=== PATIENT | female | born 1970 | race Caucasian/White ===

== ENCOUNTER 2021-03-19 18:44 | Inpatient (IN) | payer OTHER, MEDICAID ==
[~2021-03-19] VITALS: Ht 162.6 cm; Wt 190.1 kg
--- NOTE | ~2021-03-19 | CON ---
[facility] [address] [place] [address] CONSULTATION Name: JOSEY ANDERSON Room: [address] IN M.R.#: [id number] Admission: 03/19/21 Attend Phys: Karen Sanchez Discharge: Date of : 70 Report #: [id number] THIS REPORT FOR: cc: Yosvany Ocasio Sr, MD, Otis S Sr MD Khosla, Parveen K. MD ~ DOC #: [id number] Puneet Sanders MD DATE OF CONSULTATION: 03/21/2021 HISTORY OF PRESENT ILLNESS: This is a 50-year-old female patient who was evaluated by me for confusing history. She says she had confusion yesterday. She was trying to eat the batteries. She had some right facial weakness. Nurses say that they have never noticed any of these symptoms. She said she had a TIA before, but the history of TIA is pretty poorly defined. REVIEW OF SYSTEMS: Positive for diabetes, which appears to be uncontrolled. She said she had some slurring of the speech. Record indicates that she was confused, but question of narcotic use is there as I understand. She is a diabetic and that appeared to be uncontrolled. A 14-point review of system was otherwise noncontributory. PAST MEDICAL HISTORY: Positive for TIA, but history is poorly defined. FAMILY HISTORY: Unremarkable. SOCIAL HISTORY: She says she does not drink alcohol at all. PHYSICAL EXAMINATION: NEUROLOGIC: The patient's examination indicates she is alert, responsive, able to follow simple and complex commands, coherent. Her speech, concentration, fund of knowledge and memory is at her baseline. Cranial nerve examination II-XII is unremarkable. I do not see any facial weakness. Neuromuscular examination was symmetrical. Position sense is intact. Pulses are difficult to feel. She is morbidly obese. Her hearing and vision looks adequate. There is no thyroid mass or carotid bruit. CARDIAC: Unremarkable. VITAL SIGNS: Blood pressure is 131/59, respiration is 21, pulse is 73 and temperature is 98. LABORATORY DATA: White count is 8.7. GFR is 106. Glucose is 224. She did have a carotid Doppler as well as a CT and they were unremarkable. IMPRESSION AND PLAN: This is very difficult to tell in this patient who has a pretty significant history and by record narcotic use, [place] [address] CONSULTATION Name: IMANIDOMINICJOSEY Henriquez Minh Room: [address] IN [facility]#: [id number] Admission: 03/19/21 Attend Phys: Karen Sanchez Discharge: Date of : 70 Report #: [id number] there and how much is not there, but she does complain of symptoms which can be consistent with a transient ischemic attack. We will get some workup done and I ordered that and I will look at it and if that is unremarkable, the patient can be sent home. Thank you very much for this referral and if you have any questions, please feel free to contact me. MD LUIZ Rojas/EMELY By: 1553 02Puneet Sanders MD /nt
--- NOTE | ~2021-03-19 | EEG ---
[address] [address] EEG STUDY REPORT Name: JOSEY ANDERSON Room: [address] IN M.R.#: [id number] Admission: 03/19/21 Attend Phys: Karen Sanchez Discharge: Date of : 70 Report #: [id number] THIS REPORT FOR: cc: Yosvany Ocasio Sr, MD, Otis S Sr MD Khosla, Parveen K. MD ~ DOC #: [id number] Puneet Sanders MD DATE OF SERVICE: 03/22/2021 This patient is being evaluated for altered mental status. EEG was done by placing the electrode by standard 10-20 system of electrode placement. Both referential and sequential montages were used for recording. Background activity in this patient's EEG is about 8-9 Hz and 30 microvolt. Photic stimulation is unremarkable. The patient went to sleep and that is associated with more slowing, but the patient's EEG is slow throughout the record. IMPRESSION: This patient's EEG has intermixed slowing on both sides. That is a nonspecific abnormality which can occur with dementia, effect of psychotropic medication drowsiness, etc. Clinical correlation is recommended. Thank you very much for this referral. MD LUIZ Rojas/GUR By: 1732 [id number] Sanders MD /renetta
[~2021-03-19 18:44] MED LIST: BACITRACIN 500U30 G1 TOP; BACTRIM DS TAB1 EACH PO; BENADRYL25 MG PO; BENAZEPRIL-HCT1 EAC2 PO; CEFDINIR300 MG PO; CIPRO250 M1 PO; CLEOCIN HCL300 MG PO; CYMBALTA30 MG; CYMBALTA30 MG PO; DEPAKOTE; DEPAKOTE500 MG PO; FIORICET 50-301 EACH PO; FLAGYL500 MG PO; FLUZONE 2045 MCG/011; HUMALOG100 UNIT/1 SQ; HYDROCHLOROTH12.5 MG PO; HYDROCODON-ACE1 EAC7 PO; HYDROCODON-ACE1 EAC8 PO; HYDROCODONE-AP1 EA12 PO; HYDROCODONE-AP1 EAC6 PO; IBUPROFEN 800800 MG PO; KEFLEX500 MG PO; LANTUS SC; LANTUS SUBQ; LANTUS100 UNIT/M SUBQ; LEVOTHYROXINE0.05 MG PO; LEXAPRO 10 MG T10 M1 PO; LEXAPRO 10 MG T10 MG PO; LITHIUM CARBON300 M7; LOMOTIL TABLET1 EACH PO; LOTRIMIN30 GM TP; MOBIC7.5 M1 PO; MOOD STABLIZER; NAPROSYN375 MG PO; NEO-POLYMYXIN-H10 ML OT; NORCO 10-325 T1 EACH PO; NORCO 5-325 TA1 EAC1 PO; NORCO 5-325 TA1 EACH PO; NYSTATIN 1100000 U/M BUCCAL; PERCOCET 5-3251 EACH PO; PERCOCET 7.5-31 EACH PO; PNEUMOVAX25 MCG/0.5; PROZAC 20 MG20 M1 PO; PROZAC 20 MG20 MG PO; PROZAC10 MG PO; SYNTHROID50 MCG PO; TEGRETOL XR100 MG PO; TORADOL 10 MG T10 MG PO; TOUJEO SOL300 UNIT/1 SQ; TRILEPTAL 300300 MG PO; TRILEPTAL600 MG PO; ULTRAM 50MG TAB50 MG PO; VALIUM5 MG PO; XANAX 0.5 MG0.5 M1 PO; XANAX 0.5 MG0.5 MG PO; XANAX 1 MG TABLE1 MG PO; XANAX XR1 MG; XANAX XR1 MG PO; ZOFRAN ODT4 MG PO; ZOFRAN ODT4 MG SUBLING; ZOFRAN4 MG PO; ZPAK PO; [UNRECOGNIZED DRUG - REMARK]
[2021-03-19 18:50] VITALS: BP 153/79
[2021-03-19 20:03] LABS: ABSOLUTE BASOPHILS 0.1 thou/uL (0.0-0.2); ABSOLUTE EOSINOPHILS 0.1 thou/uL (0.0-0.7); ABSOLUTE LYMPHOCYTES 2.5 thou/uL (0.8-5.3); ABSOLUTE MONOCYTES 0.5 thou/uL (0.0-1.2); ABSOLUTE NEUTROPHILS 6.3 thou/uL (1.6-8.1); BASOPHILS 0.6 %; EOSINOPHILS 0.7 %; HEMATOCRIT 36.7 % (37.0-47.0); HEMOGLOBIN 12.5 gm/dL (12.0-15.0); LYMPHOCYTES 26.5 %; MCH 30.3 pg (26.0-34.0); MCHC 34.1 g/dL (28.0-37.0); MCV 88.9 fL (80.0-100.0); MONOCYTES 5.3 %; MPV 7.6 fl. (7.2-11.1); NUCLEATED RBCS 0 /100WBC; PLATELET COUNT* 240 thou/uL (150-400); POLYS 66.9 %; RBC 4.13 mil/uL (4.20-5.00); RDW-CV 13.6 % (10.5-14.5); WBC 9.4 thou/uL (4.0-11.0)
[2021-03-19 20:12] LABS: BE -5.8 mmol/L (-2 to +3); PCO2 36.9 mmHg (35.0-45.0); PO2 72.9 mmHg (75.0-100.0); pH 7.337 (7.340-7.450)
[2021-03-19 20:13] LABS: CALCIUM 8.3 mg/dL (8.5-10.1); CREATININE 0.9 mg/dL (0.6-1.3); POTASSIUM 4.2 mmol/L (3.5-5.1)
[2021-03-19 20:17] LABS: APTT 24.1 Seconds (25.0-31.3); INR 0.9; MAGNESIUM 1.8 mg/dL (1.8-2.4); PROTIME 9.7 Seconds (9.20-11.50); TOTAL BILIRUBIN 0.2 mg/dL (<0.1-1.0); TOTAL PROTEIN 6.9 g/dL (6.4-8.2)
[2021-03-19 20:29] LABS: URINE BILIRUBIN NEGATIVE (Negative); URINE BLOOD NEGATIVE (Negative); URINE CLARITY CLEAR; URINE COLOR YELLOW; URINE GLUCOSE-RANDOM 3+ (Negative); URINE KETONES NEGATIVE (Negative); URINE LEUKOCYTES-REFLEX NEGATIVE (Negative); URINE NITRITE-REFLEX NEGATIVE (Negative); URINE PROTEIN NEGATIVE (Negative); URINE UROBILINOGEN 0.2 E.U./dl (0.2-1.0)
[2021-03-19 20:46] LABS: SGOT 14.4 U/L (15-37)
[2021-03-19 23:32] VITALS: BP 142/70
[2021-03-20 04:04] VITALS: BP 139/65
[2021-03-20 08:05] VITALS: BP 128/77
[2021-03-20 12:00] VITALS: BP 137/59
[2021-03-20 16:00] VITALS: BP 120/94
[2021-03-21] VITALS: BP 144/71
[2021-03-21 04:00] VITALS: BP 127/63
[2021-03-21 07:43] LABS: HEMATOCRIT 35.7 % (37.0-47.0); MCH 29.7 pg (26.0-34.0); MCHC 33.6 g/dL (28.0-37.0); MCV 88.6 fL (80.0-100.0); MPV 7.4 fl. (7.2-11.1); RBC 4.03 mil/uL (4.20-5.00); RDW-CV 13.6 % (10.5-14.5); WBC 8.7 thou/uL (4.0-11.0)
[2021-03-21 07:53] LABS: CALCIUM 7.8 mg/dL (8.5-10.1); CREATININE 0.6 mg/dL (0.6-1.3); POTASSIUM 3.5 mmol/L (3.5-5.1)
[2021-03-21 08:00] VITALS: BP 133/56
[2021-03-21] MEDS ORDERED: ALPRAZOLAM XR3 MG PO (08:54)
[2021-03-21] MEDS ORDERED: HYDROCODON-ACE1 EAC7 PO (10:24)
[2021-03-21] MEDS ORDERED: MINIPRESS2 MG PO (10:25)
[2021-03-21] MEDS ORDERED: ZESTRIL10 MG PO (10:26)
[2021-03-21] MEDS ORDERED: TOPAMAX100 MG PO (10:26)
[2021-03-21] MEDS ORDERED: MIRTAZAPINE15 M2 PO (10:27)
[2021-03-21] MEDS ORDERED: NEURONTIN300 MG PO (10:27)
[2021-03-21 12:00] VITALS: BP 131/59
--- NOTE | 2021-03-21 13:21 | 2DMMODE ---
[place] [address] 2 D/M-MODE ECHOCARDIOGRAM Name: JOSEY ANDERSON Room: [address] IN .R.#: [id number] Admission: 03/19/21 Attend Phys: Marcelo Mosher Discharge: Date of : 70 Date of Service: 03/21/21 1321 Report #: [id number] THIS REPORT FOR: cc: Yosvany Ocasio Sr, MD, Otis S Sr MD Holkins,Luis Wiggins MD [facility] ~ APPROVED REPORT Study performed: 03/21/2021 11:24:46 EXAM: Comprehensive 2D, Doppler, and color-flow Echocardiogram Patient Location: In-Patient Room #: [facility] Status: routine BSA: 2.41 HR: 68 bpm Rhythm: NSR Other Information Study Quality: Adequate Indications CVA/TIA Echo Enhancing Agent Indication: Rule out Shunt Agent(s) / Amount(s) Used: Definity 10 cc 2D Dimensions IVSd: 11.95 (7-11mm) LVOT Diam: 20.35 (18-24mm) LVDd: 49.81 mm PWd: 12.94 (7-11mm) Ascending Ao: 27.85 (22-36mm) LVDs: 28.49 (25-40mm) Volumes Left Atrial Volume (Systole) LA ESV Index: 32.30 mL/m2 Aortic Valve AoV Peak Jono.: 1.65 m/s AO Peak Gr.: 10.89 mmHg LVOT Max P.53 mmHg AO Mean Gr.: 5.97 mmHg LVOT Mean P.85 mmHg LVOT Max V: 1.28 m/[place] [address] 2 D/M-MODE ECHOCARDIOGRAM Name: JOSEY ANDERSON Room: [address] IN .R.#: [id number] Admission: 03/19/21 Attend Phys: Marcelo Mosher Discharge: Date of : 70 Date of Service: 03/21/21 1321 Report #: [id number] V2 VTI: 34.99 cm LVOT Mean V: 0.75 m/s MARIBELL (VTI): 2.73 cm2 LVOT V1 VTI: 29.37 cm Mitral Valve MV Mean Gr.: 3.04 mmHg E/A Ratio: 1.66 MV Decel. Time: 291.18 ms MV E Max Jono.: 1.22 m/s MV PHT: 84.44 ms MVA (PHT): 2.61 cm2 TDI E/Lateral E': 10.17 E/Medial E': 13.56 Medial E' Jono.: 0.09 m/s Lateral E' Jono.: 0.12 m/s Pulmonary Valve PV Peak Jono.: 1.19 m/s PV Peak Gr.: 5.62 mmHg Tricuspid Valve RAP Estimate: 5.00 mmHg TR Peak Gr.: 28.40 mmHg RVSP: 33.00 mmHg PA Pressure: 33.00 mmHg Left Ventricle The left ventricle is normal size. There is normal LV segmental wall motion. There is normal left ventricular wall thickness. Left ventricular systolic function is normal. The left ventricular ejection fraction is within the normal range. LVEF is 55-60%. The left ventricular diastolic function is normal. Right Ventricle The right ventricle is normal size. The right ventricular systolic function is normal. Atria The left atrium size is normal. The interatrial septum is intact with no evidence for an atrial septal defect. The right atrium size is normal. Aortic Valve The aortic valve is normal in structure. No aortic regurgitation is present. There is no aortic valvular stenosis. Mitral Valve There is mitral annular calcification. There is no mitral valve regurgitation noted. No evidence [place] [address] 2 D/M-MODE ECHOCARDIOGRAM Name: JOSEY ANDERSON Room: [address] IN M.R.#: [id number] Admission: 03/19/21 Attend Phys: Marcelo Mosher Discharge: Date of : 70 Date of Service: 03/21/21 1321 Report #: [id number] Tricuspid Valve The tricuspid valve is normal in structure. Mild tricuspid regurgitation. Mild pulmonary hypertension. Pulmonic Valve The pulmonary valve is normal in structure. There is no pulmonic valvular regurgitation. Great Vessels The aortic root is normal in size. IVC is normal in size and collapses >50% with inspiration. Pericardium There is no pericardial effusion. <Conclusion> The left ventricle is normal size. There is normal left ventricular wall thickness. Left ventricular systolic function is normal. The left ventricular ejection fraction is within the normal range. LVEF is 55-60%. The right ventricle is normal size. The left atrium size is normal. The aortic valve is normal in structure. There is mitral annular calcification. There is no mitral valve regurgitation noted. No evidence of mitral valve stenosis. The tricuspid valve is normal in structure. Mild tricuspid regurgitation. Mild pulmonary hypertension. IVC is normal in size and collapses >50% with inspiration. There is no pericardial effusion. There is normal LV segmental wall motion. The interatrial septum is intact with no evidence for an atrial septal defect. <ELECTRONICALLY SIGNED> By: Luis Hanks MD, FACC 03/21/21 132 132 20 Luis Hanks MD, FACC /INF
--- NOTE | 2021-03-21 13:50 | EKG ---
[place] [address] ELECTROCARDIOGRAM REPORT Name: JOSEY ANDERSON Room: [address] ADM IN .R.#: [id number] Admission: 03/19/21 Attend Phys: Marcelo Mosher Discharge: Date of : 70 Date of Service: 03/19/21 1900 Report #: [id number] THIS REPORT FOR: //name// [facility] ED Test Date: 2021-03-19 Test Time: 19:00:29 Pat Name: JOSEY ANDERSON Department: Room: [facility] Gender: F Parts Representative: [facility] : 1970 Requested By: Casie Burt Order Number: [id number] MD: Luis Hanks Measurements Intervals [place] Rate: 88 P: 7 SD: 156 QRS: -23 QRSD: 107 T: 40 QT: 377 QTc: 457 Interpretive Statements Sinus rhythm Borderline left axis deviation Low voltage, precordial leads Compared to ECG 01/10/2014 05:31:18 Low QRS voltage now present Electronically Signed On 03-21-2021 13:50:19 CDT by Luis Hanks [email or web address] <ELECTRONICALLY SIGNED> By: Luis Hanks MD, FAC 03/21/21 1350 190 190 Luis Hanks MD, FAC /EPI
[2021-03-21 16:00] VITALS: BP 126/54
[2021-03-21 20:00] VITALS: BP 140/80
[2021-03-22 00:53] VITALS: BP 134/49
[2021-03-22 04:02] VITALS: BP 138/67
[2021-03-22 08:08] VITALS: BP 154/65
[2021-03-22 12:00] VITALS: BP 123/36
[2021-03-22 16:54] VITALS: BP 123/36
== END 2021-03-22 18:45 | disposition home or self-care (01) | DRG 637 ==
LOC: M.ERS 18:44 → M.TBA-ER 21:01 → M.2W 21:01
PROVIDERS: Family Medicine; Personal Emergency Response Attendant; ADMIT Internal Medicine; ATTEND Internal Medicine
PROC: 5A09357 Assistance with Respiratory Ventilation, Less than 24 Consecutive Hours, Continuous Positive Airway Pressure (ICD-10-PCS; principal; 2021-03-21)
PROC: 5A09357 Assistance with Respiratory Ventilation, Less than 24 Consecutive Hours, Continuous Positive Airway Pressure (ICD-10-PCS; 2021-03-22)
DX: E11.65 Type 2 diabetes mellitus with hyperglycemia (principal); G93.41 Metabolic encephalopathy; J96.01 Acute respiratory failure with hypoxia; Z68.45 Body mass index [BMI] 70 or greater, adult; E66.01 Morbid (severe) obesity due to excess calories; F41.9 Anxiety disorder, unspecified; G47.30 Sleep apnea, unspecified; F43.10 Post-traumatic stress disorder, unspecified; G89.29 Other chronic pain; I10 Essential (primary) hypertension; E78.5 Hyperlipidemia, unspecified; G43.909 Migraine, unspecified, not intractable, without status migrainosus; E11.649 Type 2 diabetes mellitus with hypoglycemia without coma; F31.9 Bipolar disorder, unspecified; M13.89 Other specified arthritis, multiple sites; J45.909 Unspecified asthma, uncomplicated; E78.00 Pure hypercholesterolemia, unspecified; Z20.822 Contact with and (suspected) exposure to COVID-19; Z99.81 Dependence on supplemental oxygen; Z85.42 Personal history of malignant neoplasm of other parts of uterus; Z90.710 Acquired absence of both cervix and uterus; Z86.73 Personal history of transient ischemic attack (TIA), and cerebral infarction without residual deficits; Z79.4 Long term (current) use of insulin; Z79.899 Other long term (current) drug therapy; Z88.5 Allergy status to narcotic agent; Z88.0 Allergy status to penicillin; Z88.8 Allergy status to other drugs, medicaments and biological substances; Z91.09 Other allergy status, other than to drugs and biological substances

== ENCOUNTER 2021-04-20 11:40 | Emergency (ER) | payer OTHER, MEDICAID ==
[~2021-04-20] VITALS: Ht 162.6 cm; Wt 186.4 kg
[~2021-04-20 11:40] MED LIST changes: +ALPRAZOLAM XR3 MG PO; +MINIPRESS2 MG PO; +MIRTAZAPINE15 M2 PO; +NEURONTIN300 MG PO; +TOPAMAX100 MG PO; +ZESTRIL10 MG PO
[2021-04-20 12:51] LABS: ABSOLUTE EOSINOPHILS 0.2 thou/uL (0.0-0.7); ABSOLUTE LYMPHOCYTES 3.5 thou/uL (0.8-5.3); ABSOLUTE MONOCYTES 0.6 thou/uL (0.0-1.2); ABSOLUTE NEUTROPHILS 5.6 thou/uL (1.6-8.1); BASOPHILS 0.2 %; EOSINOPHILS 1.5 %; HEMATOCRIT 38.2 % (37.0-47.0); LYMPHOCYTES 35.5 %; MCH 29.8 pg (26.0-34.0); MCHC 34.1 g/dL (28.0-37.0); MCV 87.1 fL (80.0-100.0); MONOCYTES 6.4 %; MPV 7.4 fl. (7.2-11.1); NUCLEATED RBCS 0 /100WBC; PLATELET COUNT* 252 thou/uL (150-400); POLYS 56.4 %; RBC 4.38 mil/uL (4.20-5.00); RDW-CV 13.8 % (10.5-14.5)
[2021-04-20 13:01] LABS: CALCIUM 8.4 mg/dL (8.5-10.1); CREATININE 0.9 mg/dL (0.6-1.3); POTASSIUM 3.8 mmol/L (3.5-5.1)
[2021-04-20 13:06] LABS: TOTAL BILIRUBIN 0.2 mg/dL (<0.1-1.0); TOTAL PROTEIN 7.2 g/dL (6.4-8.2)
[2021-04-20 14:38] LABS: URINE BILIRUBIN NEGATIVE (Negative); URINE BLOOD NEGATIVE (Negative); URINE CLARITY CLEAR; URINE COLOR YELLOW; URINE GLUCOSE-RANDOM TRACE (Negative); URINE KETONES NEGATIVE (Negative); URINE LEUKOCYTES-REFLEX NEGATIVE (Negative); URINE NITRITE-REFLEX NEGATIVE (Negative); URINE PROTEIN NEGATIVE (Negative); URINE SPECIFIC GRAVITY >= 1.030 (1.005-1.030); URINE UROBILINOGEN 0.2 E.U./dl (0.2-1.0)
[2021-04-20 15:05] VITALS: BP 138/59
--- NOTE | 2021-04-20 15:24 | EKG ---
[place] [address] ELECTROCARDIOGRAM REPORT Name: JOSEY ANDERSON Room: [facility]#: [id number] Admission: 04/20/21 Attend Phys: Discharge: 04/20/21 Date of : 70 Date of Service: 04/20/21 1215 Report #: [id number] THIS REPORT FOR: //name// [facility] ED Test Date: 2021-04-20 Test Time: 12:15:16 Pat Name: JOSEY ANDERSON Department: Room: Gender: F Car Rental Agency Manager: MARY : 1970 Requested By: Mechelle Decker Order Number: [id number] MD: Luis Hanks Measurements Intervals [place] Rate: 83 P: 19 KS: 156 QRS: -28 QRSD: 108 T: 30 QT: 380 QTc: 447 Interpretive Statements Sinus rhythm Borderline left axis deviation Low voltage, precordial leads Abnormal R-wave progression, late transition Compared to ECG 03/19/2021 19:00:29 No significant changes Electronically Signed On 04-20-2021 15:24:26 CDT by Luis Hanks [email or web address] <ELECTRONICALLY SIGNED> By: Luis Hanks MD, [facility] 04/20/21 1524 1215 1215 Luis Hanks MD, [facility] /EPI
== END 2021-04-20 15:05 | disposition home or self-care (01) ==
LOC: M.ERS 11:40
PROVIDERS: Physician Assistant
DX: R53.1 Weakness (principal); Z20.822 Contact with and (suspected) exposure to COVID-19; R06.00 Dyspnea, unspecified; G47.30 Sleep apnea, unspecified; E78.00 Pure hypercholesterolemia, unspecified; E11.9 Type 2 diabetes mellitus without complications; G43.909 Migraine, unspecified, not intractable, without status migrainosus; M19.90 Unspecified osteoarthritis, unspecified site; Z88.0 Allergy status to penicillin; Z88.5 Allergy status to narcotic agent; Z88.1 Allergy status to other antibiotic agents; Z86.14 Personal history of Methicillin resistant Staphylococcus aureus infection; Z86.73 Personal history of transient ischemic attack (TIA), and cerebral infarction without residual deficits; Z85.42 Personal history of malignant neoplasm of other parts of uterus

== ENCOUNTER 2021-08-31 22:37 | Inpatient (IN) | payer OTHER, MEDICAID ==
[~2021-08-31] VITALS: Ht 162.6 cm; Wt 173.7 kg
[2021-08-31 22:38] VITALS: BP 168/63
[2021-08-31 23:12] LABS: INFLUENZA A ANTIGEN Negative (Negative); INFLUENZA B ANTIGEN Negative (Negative)
[2021-08-31 23:12] LABS: HEMATOCRIT 37.9 % (37.0-47.0); HEMOGLOBIN 12.7 gm/dL (12.0-15.0); MCH 29.6 pg (26.0-34.0); MCHC 33.3 g/dL (28.0-37.0); MCV 88.8 fL (80.0-100.0); MPV 7.1 fl. (7.2-11.1); NUCLEATED RBCS 0 /100WBC; PLATELET COUNT* 254 thou/uL (150-400); RBC 4.28 mil/uL (4.20-5.00); RDW-CV 13.5 % (10.5-14.5); WBC 10.8 thou/uL (4.0-11.0)
[2021-08-31 23:22] LABS: CALCIUM 8.4 mg/dL (8.5-10.1); POTASSIUM 3.2 mmol/L (3.5-5.1)
[2021-08-31 23:27] LABS: ALBUMIN 3.2 g/dL (3.4-5.0); TOTAL BILIRUBIN 0.3 mg/dL (<0.1-1.0); TOTAL PROTEIN 6.7 g/dL (6.4-8.2)
[2021-08-31 23:46] LABS: URINE BILIRUBIN NEGATIVE (Negative); URINE BLOOD NEGATIVE (Negative); URINE CLARITY CLEAR; URINE COLOR YELLOW; URINE GLUCOSE-RANDOM 3+ (Negative); URINE KETONES TRACE (Negative); URINE LEUKOCYTES-REFLEX NEGATIVE (Negative); URINE NITRITE-REFLEX NEGATIVE (Negative); URINE PROTEIN NEGATIVE (Negative); URINE SPECIFIC GRAVITY 1.015 (1.005-1.030); URINE UROBILINOGEN 0.2 E.U./dl (0.2-1.0)
[2021-09-01 00:40] LABS: ABSOLUTE BASOPHILS 0.1 thou/uL (0.0-0.2); ABSOLUTE EOSINOPHILS 0.4 thou/uL (0.0-0.7); ABSOLUTE LYMPHOCYTES 2.7 thou/uL (0.8-5.3); ABSOLUTE MONOCYTES 0.4 thou/uL (0.0-1.2); ABSOLUTE NEUTROPHILS 7.1 thou/uL (1.6-8.1); ATYPICAL LYMPHS 2 %; PLATELET ESTIMATE ADEQUATE; TOXIC GRANULATION Occasional
[2021-09-01 01:25] VITALS: BP 128/58
[2021-09-01] MEDS ORDERED: DIAZEPAM 10 MG10 M1 PO (02:09)
[2021-09-01 03:00] VITALS: BP 156/68
--- NOTE | 2021-09-01 06:23 | NUR ---
RECIEVED REPORT FROM ED RN. PT TRANSFERRED TO 106. PT A&OX4. VSS. MANUFACTURING SALES REPRESENTATIVE IN PLACE. ADMISSION HISTORY & PHYSICAL ASSESSMENT COMPLETED AND CHARTED. PT TRACING SR ON TELE. PT UP WITH 1 ASSIST. PT COMPLAINED OF BACK, CHEST & RIGHT EAR PAIN-MED GIVEN PER MAR. FALL PRECAUTIONS IN PLACE. COVID PCR PENDING. CALL LIGHT WITHIN REACH.
--- NOTE | 2021-09-01 08:12 | EKG ---
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
[2021-09-01 08:39] VITALS: BP 159/77
--- NOTE | 2021-09-01 09:57 | NUR ---
cm completed an assessment with the pt who indicated she is living in home with her dtr. pt indicated she received assistance with adls from dtr, and her "doctor is working on getting it [in home care] set up." pt has walker, cane and wc. cpap @ [facility] and o2 @ 2L via [employer]. pt has hx with [facility] & [facility]. pt has correctional casework specialist with [facility]
[2021-09-01 12:34] VITALS: BP 158/73
[2021-09-01 12:40] LABS: CALCIUM 8.5 mg/dL (8.5-10.1); CREATININE 0.8 mg/dL (0.6-1.3); MAGNESIUM 1.8 mg/dL (1.8-2.4); POTASSIUM 3.1 mmol/L (3.5-5.1)
[2021-09-01 16:41] VITALS: BP 113/51
[2021-09-01 20:00] VITALS: BP 133/43
[2021-09-02] VITALS (7 sets, daily range): BP systolic 107–148; BP diastolic 43–66
--- NOTE | 2021-09-02 04:39 | NUR ---
ASSUMED PT CARE AT APPROX 1930. PT IS AWAKE AND ORIENTED X4. PT IS NOT IN DISTRESS, NO DESATURATIONS NOTED ON 2L OF O2/NC. PT C/O BACK, CHEST AND RIGHT EAR PAIN RELIEVED BY PAIN MEDS GIVEN PER DEC. NO ACUTE CHANGES THIS SHIFT. RT PROVIDED PT CPAP WITH 2L OF O2 PER REQUEST, DR PEACE INFORMED. NO ACUTE CHANGES THIS SHIFT. CALL LIGHT WITHIN REACH. HIGH FALL PRECAUTIONS IN PLACE. HOURLY ROUNDING DONE FOR PT SAFETY.
[2021-09-02 05:18] LABS: HEMATOCRIT 34.1 % (37.0-47.0); MCH 29.1 pg (26.0-34.0); MCHC 32.4 g/dL (28.0-37.0); MCV 89.8 fL (80.0-100.0); RBC 3.8 mil/uL (4.20-5.00); RDW-CV 13.9 % (10.5-14.5); WBC 9.8 thou/uL (4.0-11.0)
[2021-09-02 05:40] LABS: ALBUMIN 2.6 g/dL (3.4-5.0); CALCIUM 8.2 mg/dL (8.5-10.1); CREATININE 1.3 mg/dL (0.6-1.3); MAGNESIUM 1.8 mg/dL (1.8-2.4); POTASSIUM 3.8 mmol/L (3.5-5.1); TOTAL BILIRUBIN 0.3 mg/dL (<0.1-1.0); TOTAL PROTEIN 6.5 g/dL (6.4-8.2)
--- NOTE | 2021-09-02 15:27 | NUR ---
POC UPDATED: DISPO IS REHAB VS SNF. PT HAS LITTLE TO NO SUPPORT AT HOME AT THIS TIME TO HELP WITH CARE NEEDS.
--- NOTE | 2021-09-03 05:26 | NUR ---
ASSUMED PT CARE AT APPROX 1930. PT IS AWAKE AND ORIENTED X4. PT IS NOT IN DISTRESS, NO DESATURATIONS NOTED ON 2L OF O2/NC, CPAP AT HS. PT C/O BACK PAIN RELIEVED BY PAIN MEDS GIVEN PER MAR. NO ACUTE CHANGES THIS SHIFT. CALL LIGHT WITHIN REACH. HIGH FALL PRECAUTIONS IN PLACE. HOURLY ROUNDING DONE FOR PT SAFETY.
[2021-09-03 08:00] VITALS: BP 133/56
[2021-09-03 17:20] VITALS: BP 116/72
[2021-09-03 20:00] VITALS: BP 145/56
--- NOTE | 2021-09-03 20:19 | NUR ---
I ASSUMED CARE OF THE PATIENT AT 0700. SHE IS ALERT AND ORIENTED X4 AND IS UP WITH ASSIST OF ONE AND A WALKER. BED IS IN THE LOW LOCKED POSITION AND CALL LIGHT IS IN REACH. PATIENT NEEDS ARE MET DURING HOURLY ROUNDING. PAIN IS PARTIALLY MANAGED BY [facility] MED[facility]. SHE WAS OUT OF BED IN THE CHAIR FOR 5-6 HOURS TODAY FOR MEALS. BLOOD GLUCOSE IS MONITORED. WILL CONTINUE TO MONITOR.
[2021-09-04 00:31] VITALS: BP 120/61
--- NOTE | 2021-09-04 05:00 | NUR ---
ASSUMED PT CARE AT APPROX 1930. PT IS AWAKE AND ORIENTED X4. PT IS NOT IN DISTRESS, NO DESATURATIONS NOTED ON 2L OF O2/NC, PT IS ON CPAP AT HS. PAIN MEDS GIVEN PER MAR FOR PAIN-WITH PARTIAL RELIEF. FULL BODY SHOWER DONE. NO ACUTE CHANGES THIS SHIFT. CALL LIGHT WITHIN REACH. HOURLY ROUNDING DONE FOR PT SAFETY.
[2021-09-04 08:00] VITALS: BP 117/50
[2021-09-04 16:15] VITALS: BP 137/57
--- NOTE | 2021-09-04 19:01 | NUR ---
PER DR. ROBLES, PT OOB TO CHAIR FOR LUNCH AND DINNER.
[2021-09-04 20:00] VITALS: BP 154/89
[2021-09-05 08:00] VITALS: BP 113/49
[2021-09-05] MEDS ORDERED: METFORMIN HCL500 MG PO (08:37)
[2021-09-05] MEDS ORDERED: ALPRAZOLAM XR3 MG PO (08:37)
[2021-09-05] MEDS ORDERED: GARAMYCIN5 ML OPHTHALMIC (08:37)
[2021-09-05] MEDS ORDERED: NEO-POLYMYXIN-H10 ML OTIC (08:37)
[2021-09-05] MEDS ORDERED: NYSTATIN15 G3 TOP (08:37)
[2021-09-05] MEDS ORDERED: CEFDINIR300 MG PO (08:37)
[2021-09-05] MEDS ORDERED: IPRAT-ALBUT 0.5-3 ML INH (08:37)
[2021-09-05] MEDS ORDERED: HYDROCODON-ACE1 EAC7 PO (08:37)
[2021-09-05] MEDS ORDERED: DIAZEPAM 10 MG10 M1 PO (08:37)
--- NOTE | 2021-09-05 11:14 | NUR ---
Nutrition: Pt admitted to COVID unit. Assessed for high BMI. Wt: 383#. Spoke with RN. Pt is eating well. CHO controlled diet. BG is elevated 263, pt on insulin. PMHx, labs, meds reviewed. Consider low nutrition risk.
[2021-09-05 16:30] VITALS: BP 112/47
--- NOTE | 2021-09-05 17:40 | NUR ---
CM F/U Pt medically clear to discharge to skilled facility. Pt requesting to be discharged to [facility]. CM submitted referral and auth is pending.
[2021-09-05 20:00] VITALS: BP 123/56
[2021-09-06 04:00] VITALS: BP 124/68
--- NOTE | 2021-09-06 07:36 | NUR ---
PATIENT SLEPT PART OF THE NIGHT. IV REMAINS SALINE LOCKED. PATIENT WAS GIVEN PAIN MEDICINE ONCE THIS SHIFT. PATIENT COULD POSSIBLY DC TODAY. WILL CONTINUE TO MONITOR.
[2021-09-06 09:30] VITALS: BP 146/63
[2021-09-06 11:49] VITALS: BP 129/59
[2021-09-06 15:51] VITALS: BP 135/51
--- NOTE | 2021-09-06 16:50 | NUR ---
Case Management Followup Pt medically clear for discharge and was [facility] unable to accept pt until payment of outstanding balance of $1388. Pt not able to pay balance and agreeable to referral to [facility]. CM to continue to follow pt.
[2021-09-06 20:00] VITALS: BP 136/56
--- NOTE | 2021-09-07 03:38 | NUR ---
ASSUMED PT CARE AT APPROX 1930. PT IS AWAKE AND ORIENTED X4. PT IS NOT IN DISTRESS, NO DESATURATIONS NOTED ON 2L OF O2/NC. PT C/O BACK, CHEST AND RIGHT EAR PAIN RELIEVED BY PAIN MEDS GIVEN PER DEC. PT IS ON CPAP AT HS. XANAX GIVEN PER REQUEST FOR ANXIETY. PT IS ABLE TO REST MOST OF THIS SHIFT. NO ACUTE CHANGES THIS SHIFT. CALL LIGHT WITHIN REACH. HIGH FALL PRECAUTIONS IN PLACE. HOURLY ROUNDING DONE FOR PT SAFETY.
[2021-09-07 04:00] VITALS: BP 98/30
[2021-09-07 09:00] VITALS: BP 143/50
--- NOTE | 2021-09-07 15:54 | NUR ---
CM Follow-up Pt medically clear to discharge.Pt no longer agreeable to skilled facility placement as she does not want to accrue daily copay fee. Pt agreeable to discharge home with services and was referred to [facility] ([phone]). [facility] home to [facility] provided [facility] between 5-645pm on 09/07/21.
[2021-09-07 15:58] VITALS: BP 143/50
[2021-09-07 17:38] VITALS: BP 143/50
--- NOTE | 2021-09-07 18:52 | NUR ---
Transport arrived at 1735 with a stretcher to transport pt home this evening. Pt packed up and dressed in her clothes. All belongings left with pt that came with her to this unit. Discharge instructions reviewed and pt was able to ask questions and voice concerns. This RN attempted to reach the provider several times prior to discharge to address pt not discharging home with the hydrocodone cough syrup. This RN was unable to reach provider prior to pt's discharge, will pass on to picking machine operator helper. Pt was medically stable for discharge per provider order, VSS, labs and physical assessment unremarkable. Pt left the unit in a stretcher, escorted by transport personnel. Pt discharged home on home health.
[2021-09-08] MEDS ORDERED: HYDROCODON-ACE1 EAC7 PO (07:26)
== END 2021-09-07 17:50 | disposition home health service (06) | DRG 866 ==
LOC: M.ERS 22:37 → M.TBA-ER 23:57 → M.ORTHSURG 23:57
PROVIDERS: Emergency Medicine; Internal Medicine; ADMIT Internal Medicine; ATTEND Internal Medicine
PROC: 5A09357 Assistance with Respiratory Ventilation, Less than 24 Consecutive Hours, Continuous Positive Airway Pressure (ICD-10-PCS; principal; 2021-09-01)
PROC: 5A09357 Assistance with Respiratory Ventilation, Less than 24 Consecutive Hours, Continuous Positive Airway Pressure (ICD-10-PCS; 2021-09-02)
PROC: 5A09357 Assistance with Respiratory Ventilation, Less than 24 Consecutive Hours, Continuous Positive Airway Pressure (ICD-10-PCS; 2021-09-03)
PROC: 5A09357 Assistance with Respiratory Ventilation, Less than 24 Consecutive Hours, Continuous Positive Airway Pressure (ICD-10-PCS; 2021-09-04)
PROC: 5A09357 Assistance with Respiratory Ventilation, Less than 24 Consecutive Hours, Continuous Positive Airway Pressure (ICD-10-PCS; 2021-09-05)
PROC: 5A09357 Assistance with Respiratory Ventilation, Less than 24 Consecutive Hours, Continuous Positive Airway Pressure (ICD-10-PCS; 2021-09-06)
PROC: 5A09357 Assistance with Respiratory Ventilation, Less than 24 Consecutive Hours, Continuous Positive Airway Pressure (ICD-10-PCS; 2021-09-07)
DX: B34.9 Viral infection, unspecified (principal); E87.2 Acidosis; Z68.44 Body mass index [BMI] 60.0-69.9, adult; H66.93 Otitis media, unspecified, bilateral; B30.9 Viral conjunctivitis, unspecified; E66.01 Morbid (severe) obesity due to excess calories; Z20.822 Contact with and (suspected) exposure to COVID-19; F31.9 Bipolar disorder, unspecified; F41.9 Anxiety disorder, unspecified; J45.909 Unspecified asthma, uncomplicated; E78.00 Pure hypercholesterolemia, unspecified; M19.042 Primary osteoarthritis, left hand; M19.041 Primary osteoarthritis, right hand; M17.0 Bilateral primary osteoarthritis of knee; M19.032 Primary osteoarthritis, left wrist; M19.031 Primary osteoarthritis, right wrist; J06.9 Acute upper respiratory infection, unspecified; R53.81 Other malaise; F60.3 Borderline personality disorder; G40.909 Epilepsy, unspecified, not intractable, without status epilepticus; G47.33 Obstructive sleep apnea (adult) (pediatric); E78.5 Hyperlipidemia, unspecified; Z86.73 Personal history of transient ischemic attack (TIA), and cerebral infarction without residual deficits; Z90.710 Acquired absence of both cervix and uterus; Z85.42 Personal history of malignant neoplasm of other parts of uterus; Z88.6 Allergy status to analgesic agent; Z88.1 Allergy status to other antibiotic agents; Z88.0 Allergy status to penicillin; Z88.8 Allergy status to other drugs, medicaments and biological substances; Z79.4 Long term (current) use of insulin; Z87.891 Personal history of nicotine dependence